=== PATIENT | female | born 1960 | race African-American/Black ===

== ENCOUNTER 2016-09-17 09:11 | Emergency (ER) | payer OTHER ==
[~2016-09-17] VITALS: Ht 167.6 cm; Wt 154.2 kg
--- NOTE | ~2016-09-17 | EKG ---
[place] [address] [facility] [place] [address] ELECTROCARDIOGRAM REPORT Name: LYNSEY ANDERS Room #: REG ABHINAV Ruano#: [id number] Admission: 09/17/16 Attend Phys: Discharge: Date of : 60 Report #: [id number] THIS REPORT FOR: //name// [facility] ED Test Date: 2016-09-17 Test Time: 10:11:42 Pat Name: LYNSEY ANDERS Department: Room: Gender: F Ergonomics Technician: Jade BRAUN : 1960 Requested By: John Pichardo Order Number: [id number] MD: Measurements Intervals [place] Rate: 69 P: 42 SC: 157 QRS: -36 QRSD: 121 T: 31 QT: 403 QTc: 432 Interpretive Statements Sinus rhythm Nonspecific IVCD with LAD Left ventricular hypertrophy No previous ECG available for comparison [email or web address] By: [id number] 1011 Epiphany MD Vipul /EPI
[~2016-09-17 09:11] MED LIST: ALDACTONE25 MG PO; ASPIR 8181 MG PO; ATORVASTATIN CA40 MG PO; CARDIZEM CD240 MG PO; CEFTIN 250 MG250 MG PO; COREG25 MG PO; FLOVENT HFA 4444 MCG; FUROSEMIDE 40 M40 M1 PO; GLUTOSE GEL 1515 G1 PO; HALOPERIDOL 2 MG2 M1 PO; HALOPERIDOL 2 MG2 MG PO; HEPARIN SO5000 UNIT2 SUBQ; IMDUR 60 MG TAB60 M1 PO; IPRAT-ALBUT 0.5-3 ML IH; LASIX 40 MG TAB40 M2 PO; LEVEMIR100 UNIT/1 SUBQ; MI ACID SUSPEN355 ML PO; MIRALAX17 GM PO; NITRO-BID30 GM TOP; NOVOLOG100 UNIT/1 SUBQ; OLANZAPINE10 MG PO; OLANZAPINE5 MG PO; PLAVIX 75 MG TA75 M1 PO; PREDNISONE 20 M20 MG PO; PRILOSEC20 MG PO; PROTONIX40 M1 PO; ROBITUSSIN100 MG/53 PO; SOLU-MEDRO40 MG/1 M2 IV; TOPAMAX50 MG PO; TYLENOL325 MG PO; VALIUM5 MG PO; VENTOLIN HFA 1818 GM INH; ZYPREXA10 MG/VIAL IM
[2016-09-17 09:51] LABS: ABSOLUTE NEUTROPHILS 3.8 thou/uL (1.4-8.2); BASOPHILS 0.4 % (0.0-2.0); HEMATOCRIT 44.7 % (37.0-47.0); HEMOGLOBIN 13.9 gm/dL (12.0-15.0); LYMPHOCYTES 16.4 % (24.0-44.0); MANUAL DIFF NO; MCH 26.8 pg (26.0-34.0); MCV 86.4 fL (80.0-100.0); MONOCYTES 9.3 % (1.0-8.0); PLATELET COUNT 294 thou/uL (150-400); POLYS 71.9 % (36.0-66.0); RBC 5.17 mil/uL (4.20-5.00); WBC 5.2 thou/uL (4.0-11.0)
[2016-09-17 10:10] LABS: URINE BILIRUBIN NEGATIVE (Negative); URINE BLOOD NEGATIVE (Negative); URINE COLOR YELLOW; URINE GLUCOSE-RANDOM* NEGATIVE (Negative); URINE KETONES NEGATIVE (Negative); URINE NITRITE NEGATIVE (Negative); URINE PROTEIN (DIPSTICK) NEGATIVE (Negative); URINE UROBILINOGEN 0.2 E.U./dl (0.2-1.0)
[2016-09-17 10:29] LABS: ANION GAP 7 mmol/L (7-16); BUN 17 mg/dL (7-18); CALCIUM 9.4 mg/dL (8.5-10.1); CHLORIDE 100 mmol/L (98-107); CO2 31 mmol/L (21-32); GLUCOSE 87 mg/dL (74-106); SODIUM 138 mmol/L (136-145)
[2016-09-17 10:32] LABS: POTASSIUM 5.3 mmol/L (3.5-5.1)
[2016-09-17 10:35] LABS: CASTS None Seen /LPF (None Seen); SQUAMOUS >10 Many /LPF (0-3)
[2016-09-17 10:36] LABS: BACTERIA >30 Many /HPF (None Seen); CRYSTALS None Seen /LPF (None Seen); URINE RBC None Seen /HPF (0-2); URINE WBC 0-5 Rare /HPF (0-5)
[2016-09-17 10:37] LABS: WBC CLUMPS Rare (None Seen)
[2016-09-17 10:42] LABS: NT-PRO BRAIN NAT PEPTIDE 696 pg/mL (<300); TROPONIN-I < 0.04 ng/mL (<0.04-0.07)
[2016-09-17] MEDS ORDERED: MACROBID 100 M100 M1 PO (10:53)
== END 2016-09-17 13:05 ==
LOC: ER 09:11
PROVIDERS: Nurse Practitioner
DX: N39.0 Urinary tract infection, site not specified (principal); A59.9 Trichomoniasis, unspecified; F31.9 Bipolar disorder, unspecified; F20.0 Paranoid schizophrenia; I11.0 Hypertensive heart disease with heart failure; I50.9 Heart failure, unspecified; K21.9 Gastro-esophageal reflux disease without esophagitis; J45.909 Unspecified asthma, uncomplicated; J44.9 Chronic obstructive pulmonary disease, unspecified; E78.5 Hyperlipidemia, unspecified; E66.8 Other obesity; F10.21 Alcohol dependence, in remission; Z86.73 Personal history of transient ischemic attack (TIA), and cerebral infarction without residual deficits; Z86.19 Personal history of other infectious and parasitic diseases; Z87.891 Personal history of nicotine dependence; Z88.8 Allergy status to other drugs, medicaments and biological substances

== ENCOUNTER 2016-10-08 08:25 | Inpatient (IN) | payer OTHER ==
[~2016-10-08] VITALS: Ht 165.1 cm; Wt 160.0 kg
--- NOTE | ~2016-10-08 | HC ---
[facility] [address] [place] [address] CONSULTATION Name: LYNSEY ANDERS Room #: 435-P ADM IN M.R.#: [id number] Admission: 10/08/16 Attend Phys: Alyssa Whittaker Discharge: Date of : 60 Report #: [id number] THIS REPORT FOR: //name// CC: Alyssa Tidwell PRIMARY CARE PHYSICIAN: Unknown. REFERRING PHYSICIAN: Dr. Whittaker. REASON FOR REFERRAL: [id number] respiratory failure. HISTORY OF PRESENT ILLNESS: The patient is a 56-year-old -[place] female who was brought to the Emergency Room with progressive dyspnea. Chest x-ray revealed infiltrates. The patient was admitted for possible pneumonia. A pulmonary consultation was requested. The patient is known to this physician from previous hospitalization. She was hospitalized last July 2015. She resides at [facility]. She was doing fairly well until this morning when she complained of increasing dyspnea. She just tells that she did not feel well. Her saturation was said to be 86% on room air. Otherwise, denies any chest pain, nausea, vomiting, diarrhea, though history is somewhat as the patient is not a good historian. PAST MEDICAL HISTORY: Notable for morbid obesity with presumed obesity hypoventilation syndrome, JOSHUA, chronic hypoxic-hypercapnic respiratory failure, COPD, asthma, obesity-associated bronchospasm, schizophrenia, chronic hepatitis C, essential hypertension, gastroesophageal reflux disease, insomnia, progressive weakness, debility, being relatively bedbound over the last year or so, tobacco abuse , history of substance abuse including alcohol and history of CVA. ALLERGIES: LISINOPRIL, reactions not specified. HOME MEDICATIONS: Reviewed, which includes Imdur, DuoNeb, Ventolin HFA, insulin supplements, Topamax, valium, aspirin, Plavix, Lasix, Aldactone, Lipitor, Coreg, Haldol, olanzapine, MiraLax, Robitussin, prednisone 40 mg once a day, Flovent 44 mcg dose unknown and omeprazole 40 mg once a day. FAMILY HISTORY: Noncontributory. SOCIAL HISTORY: She currently resides at [facility] due to debility and immobility. Family lives in town. She apparently has been smoking about a pack a day while living in the [facility]. There is no history of alcohol abuse. [address] [address] CONSULTATION Name: LYNSEY ANDERS Room #: 435-P [facility] IN M.R.#: [id number] Admission: 10/08/16 Attend Phys: Alyssa Whittaker Discharge: Date of : 60 Report #: [id number] REVIEW OF SYSTEMS: As mentioned above, otherwise 10-point system review negative. PHYSICAL EXAMINATION: GENERAL: She is awake, alert, in mild distress due to cough and dyspnea. VITAL SIGNS: Temperature is 98.3 degrees Fahrenheit, pulse is 90, respiratory rate is 24, blood pressure 108/52 mmHg, saturation 98%. HEENT: Normocephalic, atraumatic. NECK: Supple, without lymphadenopathy or thyromegaly. CHEST: Coarse breath sounds bilaterally. CARDIOVASCULAR: Heart sounds are distant. No obvious murmurs or gallop. Pulses 2+/4+ bilaterally. BREASTS: Exam deferred. ABDOMEN: Obese, soft, nontender, no masses felt. GENITOURINARY AND RECTAL: Deferred. EXTREMITIES: There is no edema, cyanosis or clubbing. LABORATORY DATA: Portable chest x-ray shows cardiomegaly, mild infiltrates as seen in the right lung field in the lower lobes. Chronic left lower lobe interstitial changes are noted. CT head was unremarkable for any acute ischemic changes. Electrolytes: Sodium 134, potassium 4.5, chloride 98, CO2 is 34, BUN is 23, creatinine is 1.1. Liver function profile is unremarkable. WBC is 7400, hemoglobin is 13.8, platelets are normal. There are no significant bandemia. Arterial blood gas revealed pH 7.26, pCO2 is 71, pO2 is 67 on 5 liters of O2. IMPRESSION: 1. Vncdd-zb-jrzriyg hypercapnic-hypoxic respiratory failure in this 56-year-old morbidly obese -[place] female. Etiology is likely related to pneumonia, possible aspiration or Gram-negative ____ nosocomial infection should also be covered as the patient resides in an institution. 2. Obesity hypoventilation syndrome, obstructive sleep apnea, she will be a candidate for Trilogy if she has not already. 3. Chronic obstructive pulmonary disease/asthma exacerbation. 4. Chronic hepatitis C. 5. Hypertension. 6. Gastroesophageal reflux disease. 7. Schizophrenia. 8. History of substance abuse including alcohol. RECOMMENDATION: Broad spectrum antibiotics to cover for nosocomial infections, possible aspiration will be recommended. Bronchodilators and corticosteroids will be initiated. Antitussives will be started for DVT and GI prophylaxis will be addressed. The patient to continue noninvasive positive pressure ventilation during sleep and p.r.n. [facility] [address] [place] [address] CONSULTATION Name: LYNSEY ANDERS Room #: 435-P ADM IN M.R.#: [id number] Admission: 10/08/16 Attend Phys: Alyssa Whittaker Discharge: Date of : 60 Report #: [id number] Thank you for this consultation. <ELECTRONICALLY SIGNED> By: Major Rascon MD 10/09/16 1413 [id number] Major Rascon MD /nt
--- NOTE | ~2016-10-08 | EKG ---
[address] [address] ELECTROCARDIOGRAM REPORT Name: LYNSEY ANDERS Room #: 435-P ADM IN M.R.#: [id number] Admission: 10/08/16 Attend Phys: Alyssa Whittaker Discharge: Date of : 60 Report #: [id number] THIS REPORT FOR: //name// [facility] ED Test Date: 2016-10-08 Test Time: 08:30:17 Pat Name: LYNSEY ANDERS Department: Room: 435 Gender: F Fiscal Agent: : 1960 Requested By: Rona Aparicio Order Number: [id number] MD: Kris Griffith Measurements Intervals [place] [facility] Base Rate: 90 P: 23 MS: 172 QRS: -48 QRSD: 114 T: 57 QT: 365 QTc: 447 Interpretive Statements Sinus rhythm Left atrial enlargement Left anterior fascicular block Abnormal R-wave progression, late transition Left ventricular hypertrophy Compared to ECG 09/17/2016 10:11:42 Atrial abnormality now present Left anterior fascicular block now present Intraventricular conduction delay no longer present Electronically Signed On 10-09-2016 13:24:58 CDT by Kris Griffith [email or web address] <ELECTRONICALLY SIGNED> By: Kris Griffith MD 10/09/16 1324 9 9 Kris Griffith MD /EPI
[~2016-10-08 08:25] MED LIST changes: +MACROBID 100 M100 M1 PO
[2016-10-08 09:05] LABS: HEMATOCRIT 44.3 % (37.0-47.0); HEMOGLOBIN 13.8 gm/dL (12.0-15.0); MCH 26.5 pg (26.0-34.0); MCHC 31.2 g/dL (28.0-37.0); PLATELET COUNT 333 thou/uL (150-400); RBC 5.22 mil/uL (4.20-5.00); RDW 16.4 % (10.5-14.5); WBC 7.4 thou/uL (4.0-11.0)
[2016-10-08 09:07] LABS: MANUAL DIFF YES
[2016-10-08 09:16] LABS: CALCIUM 9.6 mg/dL (8.5-10.1); CREATININE 1.1 mg/dL (0.6-1.0); POTASSIUM 4.5 mmol/L (3.5-5.1)
[2016-10-08 09:43] LABS: ABG SAMPLE TYPE ARTERIAL; BE(vivo) 2.3 mmol/L (-2 to +3); HCO3 31.6 mmol/L (22.0-26.0); LACTATE 0.94 mmol/L (0.5-2.0); O2Hb 88.5 % (92.0-98.0); PO2 67.3 mmHg (80.0-100.0); sO2 89.9 % (92.0-98.0); tCO2 33.8 mmol/L (24.0-30.0)
[2016-10-08 09:44] LABS: PCO2 71.6 mmHg (35.0-45.0); STICK SITE R.RADIAL; pH 7.263 (7.360-7.450)
[2016-10-08 09:48] LABS: ABSOLUTE NEUTROPHILS 6.1 thou/uL (1.4-8.2); ANISOCYTOSIS 1+; TOTAL CELL COUNT 100
[2016-10-08 10:56] LABS: ALBUMIN 3.3 g/dL (3.4-5.0); DIRECT BILIRUBIN 0.1 mg/dL (<0.1-0.3); TOTAL BILIRUBIN 0.4 mg/dL (<0.1-1.0); TOTAL PROTEIN 8.3 g/dL (6.4-8.2)
[2016-10-08 11:45] VITALS: BP 144/85
[2016-10-08 12:03] VITALS: BP 108/52
[2016-10-08 15:48] VITALS: BP 144/66
[2016-10-08 19:51] VITALS: BP 114/74
[2016-10-08 23:42] VITALS: BP 113/62
[2016-10-09] VITALS (7 sets, daily range): BP systolic 88–135; BP diastolic 42–71
[2016-10-09 05:51] LABS: HEMATOCRIT 42.5 % (37.0-47.0); MCH 26.4 pg (26.0-34.0); MCHC 30.7 g/dL (28.0-37.0); MCV 85.8 fL (80.0-100.0); RBC 4.95 mil/uL (4.20-5.00); RDW 16.5 % (10.5-14.5)
[2016-10-09 06:05] LABS: CALCIUM 8.9 mg/dL (8.5-10.1); CREATININE 1.1 mg/dL (0.6-1.0); MAGNESIUM 2.1 mg/dL (1.8-2.4); PHOSPHORUS 4.6 mg/dL (2.5-4.9); POTASSIUM 4.8 mmol/L (3.5-5.1)
[2016-10-10 03:40] VITALS: BP 115/57
[2016-10-10 08:00] VITALS: BP 117/49
[2016-10-10 08:30] VITALS: BP 117/49
[2016-10-10 08:57] LABS: CREATININE 1.2 mg/dL (0.6-1.0); PHOSPHORUS 4.8 mg/dL (2.5-4.9); POTASSIUM 5.4 mmol/L (3.5-5.1)
[2016-10-10 11:16] VITALS: BP 113/45
[2016-10-10 11:23] LABS: ABG SAMPLE TYPE ARTERIAL; BE(vivo) 4.3 mmol/L (-2 to +3); HCO3 36.1 mmol/L (22.0-26.0); LACTATE 1.42 mmol/L (0.5-2.0); O2(CT) 19.6 mL/dL (15.0-23.0); O2Hb 93.4 % (92.0-98.0); PO2 79.4 mmHg (80.0-100.0); sO2 92.1 % (92.0-98.0)
[2016-10-10 11:24] LABS: PCO2 94.7 mmHg (35.0-45.0); Pressure Support 8 cm H20; STICK SITE R.RADIAL; pH 7.199 (7.360-7.450)
[2016-10-10 11:25] LABS: ABG COMMENT BIPAP 18/8/ 12 70%
[2016-10-10 14:56] LABS: ABG SAMPLE TYPE ARTERIAL; BE(vivo) 4.9 mmol/L (-2 to +3); LACTATE 1.83 mmol/L (0.5-2.0); O2(CT) 18.8 mL/dL (15.0-23.0); O2Hb 89.2 % (92.0-98.0); pH 7.298 (7.360-7.450); sO2 87.4 % (92.0-98.0); tCO2 36.2 mmol/L (24.0-30.0)
[2016-10-10 14:57] LABS: STICK SITE R.RADIAL
[2016-10-10 16:13] LABS: ABG SAMPLE TYPE ARTERIAL; BE(vivo) 0.6 mmol/L (-2 to +3); HCO3 30.2 mmol/L (22.0-26.0); LACTATE 1.19 mmol/L (0.5-2.0); sO2 56.5 % (92.0-98.0); tCO2 32.4 mmol/L (24.0-30.0)
[2016-10-10 16:30] LABS: O2Hb 64.4 % (92.0-98.0); PCO2 72.6 mmHg (35.0-45.0); PO2 35.6 mmHg (80.0-100.0); STICK SITE R.RADIAL; pH 7.237 (7.360-7.450)
[2016-10-10 16:58] VITALS: BP 120/52
[2016-10-10 19:49] VITALS: BP 88/55
[2016-10-11 06:45] VITALS: BP 138/61
[2016-10-11 06:48] LABS: ABG SAMPLE TYPE ARTERIAL; BE(vivo) 6.9 mmol/L (-2 to +3); LACTATE 1.41 mmol/L (0.5-2.0); O2(CT) 18.4 mL/dL (15.0-23.0); O2Hb 89.6 % (92.0-98.0); PO2 64.1 mmHg (80.0-100.0); STICK SITE L.RADIAL; pH 7.277 (7.360-7.450); sO2 88.6 % (92.0-98.0); tCO2 39.4 mmol/L (24.0-30.0)
[2016-10-11 08:00] VITALS: BP 150/68
[2016-10-11 09:20] LABS: ALBUMIN 3.2 g/dL (3.4-5.0); CALCIUM 9.4 mg/dL (8.5-10.1); CREATININE 1.1 mg/dL (0.6-1.0); PHOSPHORUS 3.4 mg/dL (2.5-4.9); POTASSIUM 5.3 mmol/L (3.5-5.1)
[2016-10-11] MEDS ORDERED: AUGMENTIN 875875 MG PO (09:58)
[2016-10-11] MEDS ORDERED: SEROQUEL 25 MG25 M1 PO (10:00)
[2016-10-11] MEDS ORDERED: HALDOL 0.5 MG0.5 M1 PO (10:01)
[2016-10-11 12:00] VITALS: BP 150/52
[2016-10-11 19:35] VITALS: BP 112/57
[2016-10-12 06:00] VITALS: BP 155/91
[2016-10-12 08:00] VITALS: BP 158/78
[2016-10-12 16:00] VITALS: BP 164/82
[2016-10-12 19:29] VITALS: BP 126/65
[2016-10-13 04:59] VITALS: BP 134/54
[2016-10-13 05:46] LABS: CALCIUM 9.6 mg/dL (8.5-10.1); CREATININE 0.9 mg/dL (0.6-1.0); MAGNESIUM 2.2 mg/dL (1.8-2.4); POTASSIUM 4.6 mmol/L (3.5-5.1)
[2016-10-13 08:59] VITALS: BP 129/70
[2016-10-13 12:13] VITALS: BP 113/68
[2016-10-13 16:00] VITALS: BP 120/71
[2016-10-13 19:45] VITALS: BP 124/68
[2016-10-14 04:12] VITALS: BP 138/60
[2016-10-14 08:00] VITALS: BP 135/73
== END 2016-10-14 16:40 | DRG 189 ==
LOC: ER 08:25 → EROBS 09:56 → 4S 09:56
PROVIDERS: Emergency Medicine; Hospitalist; Internal Medicine Pulmonary Disease
PROC: 5A09557 Assistance with Respiratory Ventilation, Greater than 96 Consecutive Hours, Continuous Positive Airway Pressure (ICD-10-PCS; principal; 2016-10-08)
DX: J96.22 Acute and chronic respiratory failure with hypercapnia (principal); J69.0 Pneumonitis due to inhalation of food and vomit; J44.1 Chronic obstructive pulmonary disease with (acute) exacerbation; Z68.43 Body mass index [BMI] 50.0-59.9, adult; E66.2 Morbid (severe) obesity with alveolar hypoventilation; J44.0 Chronic obstructive pulmonary disease with (acute) lower respiratory infection; F20.0 Paranoid schizophrenia; J96.21 Acute and chronic respiratory failure with hypoxia; F31.9 Bipolar disorder, unspecified; K21.9 Gastro-esophageal reflux disease without esophagitis; E78.5 Hyperlipidemia, unspecified; D64.9 Anemia, unspecified; G47.33 Obstructive sleep apnea (adult) (pediatric); B18.2 Chronic viral hepatitis C; I50.9 Heart failure, unspecified; I11.0 Hypertensive heart disease with heart failure; F17.210 Nicotine dependence, cigarettes, uncomplicated; F10.10 Alcohol abuse, uncomplicated; Y90.0 Blood alcohol level of less than 20 mg/100 ml; Z79.899 Other long term (current) drug therapy; Z79.82 Long term (current) use of aspirin; Z88.8 Allergy status to other drugs, medicaments and biological substances; Z86.73 Personal history of transient ischemic attack (TIA), and cerebral infarction without residual deficits
CPT/HCPCS: 10100